=== PATIENT | female | born 1995 | race Two or more races ===

== ENCOUNTER 2024-01-12 11:42 | Emergency (ER) | payer BC ==
[~2024-01-12] VITALS: Ht 157.5 cm; Wt 59.0 kg
[2024-01-12 11:51] VITALS: BP 100/65; TEMP 98.4
[2024-01-12] MEDS ORDERED: IBUP-1490 PO (13:49)
[2024-01-12 13:55] VITALS: O2SAT 98
== END 2024-01-12 13:55 | disposition home or self-care (01) ==
LOC: ER 11:59
DX: M25.552 Pain in left hip (principal)
CPT/HCPCS: 73502